=== PATIENT | female | born 1985 | race Caucasian/White ===

== ENCOUNTER 2023-07-25 17:02 | Observation (INO) | payer MEDICAID, SELFPAY ==
[2023-07-25 17:07] VITALS: BP 143/105; PULSE 115; RESP 16; TEMP 36.6; BMI 23.8
[2023-07-25 17:10] VITALS: BP 143/105; PULSE 115; RESP 16; TEMP 36.6
--- NOTE | 2023-07-25 17:36 | EX.ED.SAOD ---
HPI History of Present Illness Chief Complaint: Substance Abuse Informant: patient Narrative Narrative: Sent from [facility] referral for detox. History of opiate dependence, she states she was not using for years. She was at the methadone clinic. She states she was incarcerated for 9 months, has released little over a month ago. She states try to go back to the clinic as she was being treated in retirement with methadone. Physician was not present. She required going to the ER, she waited for 7 hours, they did not treat her with medications therefore she relapsed. She has been using multiple drugs including fentanyl methadone and cocaine. She states over a week ago she overdosed was hospitalized at [facility]. She follow-up with [facility] a week ago her reported drug test was clear. Since then she has been using, she tested today back at [facility] was positive. She admits to using fentanyl today. Denies alcohol. Last menstrual period was 2 months ago she is has dysmenorrhea states had bilateral tubal ligation in the past. She has had 7 previous children. Denies urinary symptoms. Denies, cramping nausea or vomiting. She states with detox she typically just eats more or draws. Prior similar symptoms: Yes PFSH PFSH Home Medications folic acid 1 mg tablet 1 mg PO DAILY 07/25/23 [History Last Taken Unknown] gabapentin 300 mg capsule 600 mg PO TID 07/25/23 [History Last Taken Unknown] hydroxyzine pamoate 50 mg capsule 50 mg PO Q6H PRN anxiety 07/25/23 [History Last Taken Unknown] methocarbamol 1,000 mg tablet 1,000 mg PO Q6H PRN muscle spasm 07/25/23 [History Last Taken Unknown] olanzapine 10 mg tablet (Zyprexa) 10 mg PO QHS 07/25/23 [History Last Taken Unknown] thiamine HCl (vitamin B1) 100 mg tablet 100 mg PO DAILY 07/25/23 [History Last Taken Unknown] Allergy/AdvReac Type Severity Reaction Status Date / Time ampicillin Allergy Angioedema Verified 07/25/23 17:06 Sulfa (Sulfonamide Allergy Angioedema Verified 07/25/23 17:06 Antibiotics) Social History Smoking Status: Current every day smoker tobacco type: e-cigarettes ROS ROS ED Constitutional Constitutional ED: Denies chills, fever(s) or sweats Eyes Eyes: Denies change in vision ENT ENT ED: Denies dysphagia or sore throat Cardiovascular Cardiovascular: Denies chest pain, leg edema, palpitations or racing heartbeat Respiratory/Chest Respiratory/Chest: Denies cough, dyspnea or dyspnea on exertion Gastrointestinal Gastrointestinal: Denies abdominal pain, diarrhea, nausea or vomiting Genitourinary Genitourinary ED: Denies dysuria, hematuria or urinary frequency Musculoskeletal Musculoskeletal: Denies back pain, extremity pain or neck pain Integumentary Denies rash or wounds Neurologic Neurologic: Denies headache(s), paresthesias or weakness EXAM Physical Exam Const Vital Signs: 07/25/23 17:07 07/25/23 17:10 Temperature 97.9 F 97.9 F Temperature Source Temporal Temporal Pulse Rate 115 H 115 H Respiratory Rate 16 16 Blood Pressure 143/105 H 143/105 H Blood Pressure Mean 117 117 Positive well nourished and well developed General Appearance ED: well developed and NAD HEENT Reports moist mucous membranes normocephalic and atraumatic Eyes PERRL, EOMs intact bilaterally and conjunctivae normal General Eye ED: Yes normal appearance of both eyes Neck no lymphadenopathy and supple General: Negative for tenderness Chest Wall Chest: Negative for tenderness Resp normal respiratory effort and normal air movement Effort and Inspection: symmetric chest movement; Negative for respiratory distress Cardio regular rhythm and no murmurs Rate: tachycardic Peripheral Pulses: pulses 2+ throughout GI normal to inspection, nondistended, normoactive bowel sounds and non-tender Palpation: Negative for guarding or rebound tenderness present Back/Spine no CVA tenderness and no thoracic nor lumbar tenderness Extremity normal to inspection General Extremety ED: Negative for edema or tenderness General Extremity: Negative for edema Neuro oriented x3 and no sensory deficits noted Sensorium / Orientation: awake and alert Skin no rashes or lesions noted and no wounds MDM MDM MDM Narrative Medical decision making narrative: Interventions / MDM: Differential diagnosis: Opioid dependence, polysubstance dependence Diagnosis considered but do not suspect: N/A My EKG interpretation: N/A Imaging independently reviewed and interpreted by myself: N/A External documents reviewed: N/A Test considered but not ordered:N/A ED course: Nontoxic slight tachycardia. Nonsurgical abdomen. Presenting for opiate dependence for detox program. Medical clearance labs ordered. Stable negative alcohol negative toxicology screen. Discussed with Dr. Agyepong for admission. Re-evaluation: stable Disposition discussed with patient/family/significant other: Patient Case discussed with consulting clinician: Hospitalist This note was generated with [employer] dictation software. It may contain incorrect words, spelling, and punctuation that were not noted in checking the note before signing. Lab Data Attestation: I reviewed the patient's lab results. Labs: Laboratory Results - last 24 hr 07/25/23 07/25/23 17:45 17:55 WBC 4.7 RBC 4.66 Hgb 13.4 Hct 43.5 MCV 93.3 MCH 28.8 MCHC 30.8 L RDW Std Deviation 49.7 H RDW Coeff of Bhavin 14.5 Plt Count 363 MPV 9.9 Immature Gran % (Auto) 0.200 Neut % (Auto) 43.7 L Lymph % (Auto) 45.1 H [place] % (Auto) 9.5 Eos % (Auto) 0.4 Baso % (Auto) 1.1 H Absolute Neuts (auto) 2.1 Absolute Lymphs (auto) 2.14 Nucleated RBC % 0 Differential Comment SCANNED Sodium 142 Potassium 4.3 Chloride 107 Carbon Dioxide 30.0 Anion Gap 5 BUN 15 Creatinine 0.63 Estim Creat Clear Calc 87.82 Est GFR (MDRD) Af Amer 136 Est GFR (MDRD) Non-Af 112 BUN/Creatinine Ratio 23.7 H Glucose 102 Calcium 8.9 Urine Test Negative Urine Opiates Screen NEGATIVE Urine Methadone Screen NEGATIVE Ur Barbiturates Screen NEGATIVE Ur Phencyclidine Scrn NEGATIVE Ur Amphetamines Screen NEGATIVE MDMA (Ecstasy) Screen NEGATIVE U Benzodiazepines Scrn NEGATIVE Urine Cocaine Screen NEGATIVE U Cannabinoids Screen NEGATIVE Ur Drug Screen Comment Ethyl Alcohol < 3.0 Discharge Plan Dx/Rx/DC Orders Clinical Impression: Desire for detoxification, Polysubstance dependence, Opioid dependence Disposition Disposition: Acute Care Hospital [facility] Discharge Date/Time: 07/25/23 20:45
[2023-07-25 18:05] LABS: Absolute Lymphocyte Count 2.14 X10^3/uL (0.83-4.51); Absolute Neutrophil Count 2.1 X10^3/uL (2.0-7.7); Basophil# 0.05 X10^3/uL; Basophil% 1.1 % (0-1); Eosinophil# 0.02 X10^3/uL; Eosinophils% 0.4 % (0-5); Hematocrit 43.5 % (37-47); Hemoglobin 13.4 g/dL (12.0-15.0); Lymphocyte # 2.14 X10^3/ul (0.83-4.51); Lymphocyte % 45.1 % (19-41); Mean Corp Hgb Conc 30.8 g/dL (32-36); Mean Corpuscular Hgb 28.8 pg (27.0-32.0); Mean Corpuscular Volume 93.3 fL (81-99); Mean Platelet Vol. 9.9 fl (6.2-12.0); Monocyte# 0.45 X10^3/uL; Monocyte% 9.5 % (0-10); NRBC Flagged by Analyzer 0 % (0-5); Neutrophil # 2.07 X10^3/uL (2.7-7.7); Neutrophil % 43.7 % (47-70); POSITIVE MORPHOLOGY YES; Platelet Count 363 K/mm3 (150-450); RBC Distribution Width CV 14.5 % (11.6-14.6); RBC Distribution Width SD 49.7 fl (35.1-43.9); Red Blood Count 4.66 M/mm3 (4.2-5.4); White Blood Count 4.7 K/mm3 (4.4-11.0)
[2023-07-25 18:14] LABS: Differential Indicated SCAN CRITERIA MET
[2023-07-25 18:30] LABS: Anion Gap 5 (5-15); BUN 15 mg/dL (7-18); BUN/Creat Ratio 23.7 RATIO (10-20); Calcium,Total 8.9 mg/dL (8.5-10.1); Chloride 107 mmol/L (98-107); Creatinine, Serum 0.63 mg/dL (0.55-1.02); EST Glomerular Filtration Rate 112 mL/min (>60); Est Glom Filt Rate - Afr Amer 136 mL/min (>60); Estimated Creatinine Clearance 87.82 ml/min; Glucose 102 mg/dL (74-106); Potassium 4.3 mmol/L (3.5-5.1); Sodium Level 142 mmol/L (136-145)
[2023-07-25 18:34] LABS: Alcohol, Blood (Medical)-Serum < 3.0 mg/dL; Differential Comment SCANNED
[2023-07-25 18:45] LABS: Amphetamine Urine VISTA NEGATIVE (<1000 ng/mL); Barbiturate Urine VISTA NEGATIVE (< 200 ng/mL); Benzodiazepine Urine VISTA NEGATIVE (< 200 ng/mL); Cocaine Urine VISTA NEGATIVE (< 300 ng/mL); Ecstacy Urine VISTA NEGATIVE (< 500 ng/mL); Methadone Urine VISTA NEGATIVE (< 300 ng/mL); PCP Urine VISTA NEGATIVE (< 25 ng/mL); THC Urine VISTA NEGATIVE (< 50 ng/mL); Vista UDS pH Range 6
[2023-07-25 18:46] LABS: Internal QC Validated? YES +Cl - CLEAR BKGD; Pregnancy, Urine Negative Negative
--- NOTE | 2023-07-25 19:33 | HP.PCM.HOS_ITS ---
HPI - General General Date of Admission: 07/25/23 Date of Service: 07/25/23 Chief Complaint: Desire for detoxification HPI Narrative MARGA CORTEZ, is a 37 with a significant history of opioid abuse F who presents to emergency department for detoxification. Reportedly patient has been snorting fentanyl. She has been snorting for about 15 years. Last time she used was about 1 to 2 days ago. Patient was at the methadone clinic but in about a month she has not been able to go because she does not get a bus to go. She was recently jailed for about 9 months. At the halfway she was getting methadone. She went to [facility]. However she tested positive for opioids so she was sent to the emergency department for an admission for detoxification. She reports withdrawal symptoms of spasm in both hands; shaking; and runny nose. Further, she has painful legs. [facility] Home Medications folic acid 1 mg tablet 1 mg PO DAILY 07/25/23 [History Last Taken Unknown] gabapentin 300 mg capsule 600 mg PO TID 07/25/23 [History Last Taken Unknown] hydroxyzine pamoate 50 mg capsule 50 mg PO Q6H PRN anxiety 07/25/23 [History Last Taken Unknown] methocarbamol 1,000 mg tablet 1,000 mg PO Q6H PRN muscle spasm 07/25/23 [History Last Taken Unknown] olanzapine 10 mg tablet (Zyprexa) 10 mg PO QHS 07/25/23 [History Last Taken Unknown] thiamine HCl (vitamin B1) 100 mg tablet 100 mg PO DAILY 07/25/23 [History Last Taken Unknown] Allergy/AdvReac Type Severity Reaction Status Date / Time ampicillin Allergy Angioedema Verified 07/25/23 17:06 Sulfa (Sulfonamide Allergy Angioedema Verified 07/25/23 17:06 Antibiotics) Family History no significant family his no significant family history Surgical History no surgical history no surgical history Social History Smoking Status: Current every day smoker tobacco type: e-cigarettes ROS ROS Narrative Pertinent positives and pertinent negatives as noted in HPI. All other systems were reviewed and are negative Vital Signs Vital Signs Vital Signs: 07/25/23 17:07 07/25/23 17:10 Temperature 97.9 F 97.9 F Temperature Source Temporal Temporal Pulse Rate 115 H 115 H Respiratory Rate 16 16 Blood Pressure 143/105 H 143/105 H Blood Pressure Mean 117 117 Weight Weight: 55.2 kg Body Mass Index (BMI) 23.8 Physical Exam Narrative Physical exam: General: Well-nourished, well-developed. Head: Normocephalic, atraumatic, no tenderness Eyes: Vision is grossly intact. EOMI ENT, no trauma, moist mucous membranes, no rhinorrhea Neck: Nontender, No thyromegaly. CVS: Regular rate and rhythm. S1-S2 present. No murmur, gallop or rub. Respiratory : clear to auscultation bilaterally, chest wall nontender Abdomen: Soft, nontender, nondistended, normal bowel sounds, no masses : Deferred Back: Nontender, no CVA tenderness, no midline spinal tenderness, deformities, step-offs Extremities: Nontender full range of motion, no trauma Skin: Normal color, no trauma, abrasions Neuro: Alert, oriented, cranial nerves II through XII grossly intact. Psychiatry: Normal mood. Normal affect. Not depressed. Not anxious. Results Lab / Micro Data 07/25/23 17:55 07/25/23 17:55 Labs: Laboratory Results - last 24 hr 07/25/23 17:45: Urine Test Negative, Urine Opiates Screen NEGATIVE, Urine Methadone Screen NEGATIVE, Ur Barbiturates Screen NEGATIVE, Ur Phencyclidine Scrn NEGATIVE, Ur Amphetamines Screen NEGATIVE, MDMA (Ecstasy) Screen NEGATIVE, U Benzodiazepines Scrn NEGATIVE, Urine Cocaine Screen NEGATIVE, U Cannabinoids Screen NEGATIVE, Ur Drug Screen Comment 07/25/23 17:55: WBC 4.7, RBC 4.66, Hgb 13.4, Hct 43.5, MCV 93.3, MCH 28.8, MCHC 30.8 L, RDW Std Deviation 49.7 H, RDW Coeff of Bhavin 14.5, Plt Count 363, MPV 9.9, Immature Gran % (Auto) 0.200, Neut % (Auto) 43.7 L, Lymph % (Auto) 45.1 H, [place] % (Auto) 9.5, Eos % (Auto) 0.4, Baso % (Auto) 1.1 H, Absolute Neuts (auto) 2.1, Absolute Lymphs (auto) 2.14, Nucleated RBC % 0, Differential Comment SCANNED, Sodium 142, Potassium 4.3, Chloride 107, Carbon Dioxide 30.0, Anion Gap 5, BUN 15, Creatinine 0.63, Estim Creat Clear Calc 87.82, Est GFR (MDRD) Af Amer 136, Est GFR (MDRD) Non-Af 112, BUN/Creatinine Ratio 23.7 H, Glucose 102, Calcium 8.9, Ethyl Alcohol < 3.0 Assessment & Plan Assessment/Plan (1) Desire for detoxification: PLAN: Plan Opioid dependence and withdrawal Patient be started on Subutex and other adjunctive medications: Gabapentin as needed; dicyclomine as needed; Vistaril as needed; methocarbamol as needed; clonidine as needed; Imodium as needed; trazodone as needed and Zofran as needed. Monitor COWS and CINA score Tobacco abuse Counseled Nicotine patch prescribed. DVT prophylaxis Low risk Encourage to ambulate Time spent in the patient's overall evaluation,decision-making process, review of diagnostic data, adjustment of management, discussion with other providers, nursing and ancillary staff involved in patient's care documentation, 45 minutes. Charges/Coding Visit Charges Inpatient E&M: 98655 Init Hosp L2
[2023-07-25 20:31] VITALS: BP 131/82; PULSE 104; RESP 16; TEMP 36.6; O2SAT 97
[2023-07-25 21:10] VITALS: BP 153/98; PULSE 110; RESP 16; TEMP 37; O2SAT 95
[2023-07-25] MEDS: traZODone 100 MG Tablet PO (22:08)
[2023-07-25] MEDS: hydrOXYzine PAM 25 MG Capsule 50 MG PO (22:08)
[2023-07-25] MEDS: cloNIDine HCl 0.1 MG Tablet PO (22:08)
[2023-07-25] MEDS: Gabapentin 600 MG Tablet PO (22:08)
[2023-07-25] MEDS: Buprenorphine HCl 2 MG TAB.SUBL SL (22:08)
[2023-07-25] MEDS: OLANZapine 10 MG Tablet PO (22:49)
[2023-07-25] MEDS: Methocarbamol 500 MG Tablet 1000 MG PO (22:49)
[2023-07-26 01:00] VITALS: BP 142/78; PULSE 101; RESP 16; TEMP 36.6; O2SAT 95
[2023-07-26 05:40] VITALS: BP 116/74; PULSE 105; RESP 16; TEMP 36.6; O2SAT 98
[2023-07-26] MEDS: Buprenorphine HCl 2 MG TAB.SUBL SL ×3 (05:44→21:19)
[2023-07-26] MEDS: Gabapentin 600 MG Tablet PO ×3 (05:44→21:18)
[2023-07-26] MEDS: hydrOXYzine PAM 25 MG Capsule 50 MG PO ×2 (05:44→18:59)
[2023-07-26 07:20] VITALS: O2SAT 93
--- NOTE | 2023-07-26 08:08 | PCM.PN.HOSP ---
Reason for Visit Reason for Visit: Opiate detox Subjective Subjective Is of pain.Ms. Lackey is a 37-year-old female who presents emergency department at [facility] on 07/25/2023 requesting detox from she uses intranasal fentanyl and has been using for about 15 years. Last use prior to presentation was 1 to 2 days ago. She had been going to the methadone clinic previously but has not been there in about a month that she has been able to able to get a bus to go. She was recently jailed about 9 months ago and in the prison methadone was initiated. She went to [facility] however she tested positive for opiates so she was sent to the emergency department for detoxification. Patient is denying opiate usage. She indicates she would like to be admitted to an inpatient facility. Upon presentation she is having withdrawal symptoms that included patent spasming, tremor, rhinitis and myalgias. Patient reports a rash on her leg and small bumps are identified but are not erythematous. She was worried about scabies however this is not a typical location for scabies and appears to be may be a mild contact irritation. In her left foot and swelling however no significant swelling identified on exam. Will obtain x-ray of foot. Also complains of a nodular red area over her left antecubital area where previous IV was placed at her previous hospitalization. Patient reports she was previously tested for COVID and was positive. Timing of this is unclear and will recheck here acutely. Objective Data Objective Data Vital Signs: Vital Signs Temp Pulse Resp BP Pulse Ox O2 Del Method 98 F 105 H 16 116/74 98 Room Air 07/26/23 05:40 07/26/23 05:40 07/26/23 05:40 07/26/23 05:40 07/26/23 05:40 07/26/23 05:40 Oxygen Delivery Method Room Air Weight: 54.431 kg Body Mass Index (BMI) 20.0 Lab / Micro Data 07/25/23 17:55 07/25/23 17:55 Labs: Laboratory Results - last 24 hr 07/25/23 17:45: Urine Test Negative, Urine Opiates Screen NEGATIVE, Urine Methadone Screen NEGATIVE, Ur Barbiturates Screen NEGATIVE, Ur Phencyclidine Scrn NEGATIVE, Ur Amphetamines Screen NEGATIVE, MDMA (Ecstasy) Screen NEGATIVE, U Benzodiazepines Scrn NEGATIVE, Urine Cocaine Screen NEGATIVE, U Cannabinoids Screen NEGATIVE, Ur Drug Screen Comment 07/25/23 17:55: WBC 4.7, RBC 4.66, Hgb 13.4, Hct 43.5, MCV 93.3, MCH 28.8, MCHC 30.8 L, RDW Std Deviation 49.7 H, RDW Coeff of Bhavin 14.5, Plt Count 363, MPV 9.9, Immature Gran % (Auto) 0.200, Neut % (Auto) 43.7 L, Lymph % (Auto) 45.1 H, [place] % (Auto) 9.5, Eos % (Auto) 0.4, Baso % (Auto) 1.1 H, Absolute Neuts (auto) 2.1, Absolute Lymphs (auto) 2.14, Nucleated RBC % 0, Differential Comment SCANNED, Sodium 142, Potassium 4.3, Chloride 107, Carbon Dioxide 30.0, Anion Gap 5, BUN 15, Creatinine 0.63, Estim Creat Clear Calc 87.82, Est GFR (MDRD) Af Amer 136, Est GFR (MDRD) Non-Af 112, BUN/Creatinine Ratio 23.7 H, Glucose 102, Calcium 8.9, Ethyl Alcohol < 3.0 Physical Exam Const alert, oriented x3, no apparent distress, average body habitus and well nourished Constitutional Narrative: Middle-aged, white female, sitting up in a chair at the bedside, watching television, appears comfortable nontoxic HEENT head/scalp atraumatic and moist oral mucous membranes HEENT Narrative: Mallampati 2, no thrush Head and Scalp: normocephalic Resp normal respiratory effort, no retractions, no use of accessory muscles and clear to auscultation bilaterally Auscultation: Negative for rales, rhonchi or wheezes Cardio regular rate, regular rhythm, S1 normal heart sound, S2 normal heart sound, no murmurs, no rub, no gallops and no clicks GI normal to inspection, nondistended, normoactive bowel sounds, soft to palpation and non-tender Extremity no clubbing, cyanosis or edema Extremity Narrative: Tenderness at ball of left foot, patient reports swelling however no significant swelling is identified on exam Skin Skin Narrative: Small area of erythema and mild nodularity over left antecubital consistent with a small cellulitis probably related to previous IV, no significant drainage or tenderness Neuro oriented x3, moves all extremities, no focal motor deficits and no sensory deficits noted Speech: speech normal Psych affect normal Mood & Affect: anxious Assessment & Plan Assessment/Plan (1) Opioid dependence: (2) Desire for detoxification: PLAN: Plan Opiate abuse/opiate withdrawal -Patient using intranasal fentanyl -Had been at a methadone clinic but was able to get a bus for about a month so started using -Methadone was started while incarcerated about 9 months ago -Patient states she has not been using fentanyl so she is not sure why her opiate screen was positive at [facility] -Toxicology was negative here however fentanyl will not show up on her screen -Start Subutex taper per [facility] protocol -As needed medication available for symptom management Left foot pain -Check x-ray Left antecubital cellulitis at previous IV spot -Patient with multiple allergies including angioedema with penicillin and sulfa -We will utilize doxycycline 100 mg p.o. twice daily x10 days Tobacco abuse -Recommend cessation -Nicotine patch available DVT prophylaxis -Low risk -Encourage frequent and early ambulation CODE STATUS Full code Charges/Coding Visit Charges Inpatient E&M: 28854 Subs Hosp L2
[2023-07-26] MEDS: Thiamine Hydrochloride 100 MG Tablet PO (08:23)
[2023-07-26] MEDS: cloNIDine HCl 0.1 MG Tablet PO (08:23)
[2023-07-26] MEDS: Methocarbamol 500 MG Tablet 1000 MG PO ×2 (08:23→18:58)
[2023-07-26] MEDS: Folic Acid 1 MG Tablet PO (08:23)
[2023-07-26 08:33] VITALS: BP 121/75; PULSE 94; RESP 16; TEMP 36.6; O2SAT 100
--- NOTE | 2023-07-26 11:16 | ADDICTION ---
Client is a 37 year old female who was admitted 07/25 via ER. Client is unemployed. Has 7 children, her father has 2 of her children and is supportive of clients recovery. Client reports she was previously in residential treatment at [facility]. Apparently she tested positive for Opioids at the facility. She report she was d/c'd. She denied use to the [facility] staff. She presented to the ER for detox-she reports she came to detox because she did not know what else to do, had no where to go. UDS at hospital was negative, but client admits to fentanyl use. When this information writer inquired about client not being honest with ER physician, she becomes tearful and again states she did not know what else to do. She is from [place] and is currently on probation in [facility]. Client indicates she will inform her surface to air weapons officer of the events in the last 24 hours. This information writer inquired about possibly probation violation, if client did not use substances, has she thought about legal consequences about reporting she used. Client states she has a 3 month fci sentence if she is violated, she is not worried about. Client is requesting residential services at [facility] in [place]. She reports she was treatment at [facility] approx. 2 years ago. She will need transportation. DESHAUN completed for [facility]. Unable to contact d/t weekend. This information writer confirmed with nurse client will remain in hospital until Saturday 07/28. Client did report she was positive for Covid on Friday07/20/23, nurse notified.
--- NOTE | 2023-07-26 11:38 | RAD_ITS ---
INDICATION: pain EXAMINATION/TECHNIQUE: X-RAY - RIGHT XR Foot Min 3 Views 3 VIEWS COMPARISON: FINDINGS: SOFT TISSUES: No soft tissue swelling or gas. No radiopaque foreign body. BONES/JOINTS: No acute fracture or subluxation.. Normal alignment. Preservation of the joint space.. No sclerotic or destructive changes observed. RAD/Foot min 3 Views IMPRESSION: Negative. Electronically Signed: Hussein Hratmann MD at 13:00 EDT ,
[2023-07-26 13:49] VITALS: BP 109/71; PULSE 99; RESP 16; TEMP 36.6; O2SAT 100
[2023-07-26] MEDS: Doxycycline 100 MG CAPSULE PO ×2 (13:50→21:18)
--- NOTE | 2023-07-26 14:19 | CASEMGMT ---
Social Work SW attempted to meet with patient to complete SDoH. Patient requesting SW come back later as she currently has her medication under her tongue and can not participate in conversation. Cinda EDWARDS, ERIC
--- NOTE | 2023-07-26 15:55 | CASEMGMT ---
Social Work SW met with patient and introduced self and role as [facility] SW. Patient agreeable to speak with SW. SW engaged patient in conversation regarding SDoH. Patient cooperative and reports no current home as the home she owned was condemned while she was in prison for nine months. Patient also needing resources for food, clothing and transportation. Patient reports her discharge plan is residential services at [facility] and requests the resources be for [facility]. Patient discussed feeling frustrated she is unable to participate in [facility] services but is understanding of their policies. SW provided emotional support. SW provided and reviewed list of resources for [facility] including clothing, transportation, MH services as well as housing. Patient receptive towards resource list and inquired about SW contacting [facility] to bring the pictures of her children that were left at their facility. SW contacted [facility] and inquired about patient's belongings. Detox Coordinator Екатерина informed and to discuss with [facility] staff. Cinda Flynn CONTAINERS SALES REPRESENTATIVE, ERIC
[2023-07-26 20:44] VITALS: BP 126/82; PULSE 107; RESP 16; TEMP 36.7; O2SAT 100
[2023-07-26] MEDS: OLANZapine 10 MG Tablet PO (21:18)
[2023-07-26] MEDS: Hydrocortisone 2.5% Ointment 20 gm tube 1 APPLIC TOPICAL (21:20)
[2023-07-27 02:45] VITALS: BP 111/78; PULSE 86; RESP 16; TEMP 36.7; O2SAT 95
[2023-07-27] MEDS: Buprenorphine HCl 2 MG TAB.SUBL SL ×3 (05:57→21:27)
[2023-07-27] MEDS: Gabapentin 600 MG Tablet PO ×3 (05:58→21:27)
[2023-07-27] MEDS: hydrOXYzine PAM 25 MG Capsule 50 MG PO ×3 (05:58→21:48)
[2023-07-27] MEDS: Methocarbamol 500 MG Tablet 1000 MG PO ×2 (06:06→15:08)
[2023-07-27 07:40] VITALS: O2SAT 97
[2023-07-27] MEDS: Thiamine Hydrochloride 100 MG Tablet PO (10:25)
[2023-07-27] MEDS: Folic Acid 1 MG Tablet PO (10:26)
[2023-07-27] MEDS: Doxycycline 100 MG CAPSULE PO ×2 (10:26→21:27)
[2023-07-27 10:30] VITALS: PULSE 106
[2023-07-27 10:32] VITALS: BP 117/72; PULSE 106; RESP 18; TEMP 36.9; O2SAT 99
--- NOTE | 2023-07-27 11:51 | PCM.PN.HOSP ---
Reason for Visit Reason for Visit: Opiate detox Subjective Subjective No significant issues overnight. She states she feels that her arm is better today. Objective Data Objective Data Vital Signs: Vital Signs Temp Pulse Resp BP Pulse Ox O2 Del Method 98.4 F 106 H 18 117/72 99 Room Air 07/27/23 10:32 07/27/23 10:32 07/27/23 10:32 07/27/23 10:32 07/27/23 10:32 07/27/23 10:32 Oxygen Delivery Method Room Air Weight: 54.431 kg Body Mass Index (BMI) 20.0 Intake & Output: Intake and Output for Last 24 Hours 07/25/23 07/26/23 07/27/23 23:59 23:59 23:59 Intake Total 1450 / 0 960 / 960 Balance 1450 / 0 960 / 960 Lab / Micro Data 07/25/23 17:55 07/25/23 17:55 Micro: Microbiology 07/26/23 11:00 Nasal Secretion SARS-CoV-2 Antigen (Rapid) - Final Radiography Diagnostic Testing: Radiology Impression Foot X-Ray 07/26/23 11:38 IMPRESSION: Negative. Electronically Signed: Hussein Hartmann MD at 13:00 EDT , Physical Exam Const alert, oriented x3, no apparent distress, average body habitus and well nourished Constitutional Narrative: Patient is walking around the room without any difficulty, appears comfortable nontoxic, no significant signs of acute withdrawal HEENT head/scalp atraumatic Head and Scalp: normocephalic Neuro oriented x3, moves all extremities and no focal motor deficits Neuro Narrative: Normal gait pattern Speech: speech normal Psych Psych Narrative: Eye contact is good and patient interacts appropriately Mood & Affect: anxious Assessment & Plan Assessment/Plan (1) Opioid dependence: (2) Desire for detoxification: PLAN: Plan Opiate abuse/opiate withdrawal -Patient using intranasal fentanyl -Had been at a methadone clinic but was able to get a bus for about a month so started using -Methadone was started while incarcerated about 9 months ago -Patient states she has not been using fentanyl so she is not sure why her opiate screen was positive at [facility] -Toxicology was negative here however fentanyl will not show up on her screen -Continue Subutex taper per [facility] protocol -As needed medication available for symptom management -[facility] has seen the patient and plan is for inpatient management with referrals being initiated tomorrow -Patient may be radically ready for discharge tomorrow depending on symptoms Left foot pain -Pain is better today -X-rays unremarkable Left antecubital cellulitis at previous IV spot -Patient with multiple allergies including angioedema with penicillin and sulfa -We will utilize doxycycline 100 mg p.o. twice daily x10 days--> day 2 of 10 -Erythema has improved Tobacco abuse -Recommend cessation -Nicotine patch available DVT prophylaxis -Low risk -Encourage frequent and early ambulation CODE STATUS Full code Charges/Coding Visit Charges Inpatient E&M: 36280 Subs Hosp L1
[2023-07-27] MEDS: Hydrocortisone 2.5% Ointment 20 gm tube 1 APPLIC TOPICAL (15:05)
[2023-07-27 15:10] VITALS: BP 126/72; PULSE 107; RESP 17; TEMP 36.9; O2SAT 99
[2023-07-27] MEDS: cloNIDine HCl 0.1 MG Tablet PO (15:16)
[2023-07-27 21:18] VITALS: BP 108/73; PULSE 100; RESP 18; TEMP 36.7; O2SAT 100
[2023-07-27] MEDS: Senna/Docusate Sodium 1 Tablet 2 TABLET PO (21:48)
[2023-07-28 06:25] VITALS: BP 102/65; PULSE 90; RESP 16; TEMP 36.8; O2SAT 96
[2023-07-28] MEDS: Gabapentin 600 MG Tablet PO (06:29)
[2023-07-28 08:13] VITALS: O2SAT 95
[2023-07-28 09:35] VITALS: BP 112/69; PULSE 100; RESP 18; TEMP 36.8; O2SAT 100
[2023-07-28] MEDS: Buprenorphine HCl 2 MG TAB.SUBL SL (09:36)
[2023-07-28] MEDS: Thiamine Hydrochloride 100 MG Tablet PO (09:36)
[2023-07-28] MEDS: Doxycycline 100 MG CAPSULE PO (09:36)
[2023-07-28] MEDS: Folic Acid 1 MG Tablet PO (09:36)
--- NOTE | 2023-07-28 12:22 | PCM.DC ---
Discharge Instructions Diet Discharge Diet: No restrictions Activity Discharge Activity: Return to Normal Activity Weight Bearing Status: Full weight bearing Follow Up Care When: Please establish with a primary care physician when able. Test Results: Test results from this visit will be discussed in further detail at your follow-up appointment, if applicable. Discharge Plan Admission Admit Date/Time: 07/25/23 19:25 Primary Reason for Your Visit: Opiate detoxification Attending Provider: Kye Stewart Primary Care Provider: Care Physician,No Primary Consulting Providers: Fercho Cerda; Yuliet Guido Instructions Additional Instructions / Restrictions: Please continue all home medications as you have been taking. We have not added any new medications for you to take. Please establish with a primary care doctor when able. Discharge Orders/Prescriptions Prescriptions: Continued gabapentin 300 mg capsule 600 mg PO TID olanzapine [Zyprexa] 10 mg tablet 10 mg PO QHS folic acid 1 mg tablet 1 mg PO DAILY thiamine HCl (vitamin B1) 100 mg tablet 100 mg PO DAILY hydroxyzine pamoate 50 mg capsule 50 mg PO Q6H PRN (Reason: anxiety) methocarbamol 1,000 mg tablet 1,000 mg PO Q6H PRN (Reason: muscle spasm) Referrals / Follow Up: Care Physician,No Primary [Primary Care Provider] - [facility] Doctor,Out of [Non-Staff] - Disposition Disposition (needs filled in before D/C Order can be placed): Home, Self Care
--- NOTE | 2023-07-28 12:25 | DS.PCM_ITS ---
Providers Date of Admission: 07/25/23 Primary Care Physician: No Primary Care Phys Reason For Visit: OPIOID DETOX Diagnosis Discharge Diagnosis (1) Opioid dependence: Status: Acute Code(s): F11.20 - Opioid dependence, uncomplicated (2) Desire for detoxification: Status: Acute Medications at Discharge Home Medications folic acid 1 mg tablet 1 mg PO DAILY 07/25/23 gabapentin 300 mg capsule 600 mg PO TID 07/25/23 hydroxyzine pamoate 50 mg capsule 50 mg PO Q6H PRN anxiety 07/25/23 methocarbamol 1,000 mg tablet 1,000 mg PO Q6H PRN muscle spasm 07/25/23 olanzapine 10 mg tablet (Zyprexa) 10 mg PO QHS 07/25/23 thiamine HCl (vitamin B1) 100 mg tablet 100 mg PO DAILY 07/25/23 doxycycline hyclate 100 mg capsule 100 mg PO BID #10 caps 07/28/23 Hospital Course Operations None Procedures None Summary of Care Provided Minutes Spent on Discharge: 25 Hospital Course: Patient is a 37-year-old female with history of opiate use disorder who presented to [facility] on 07/25/2023 for opiate detoxification. Short hospital course with multiple medical conditions addressed as noted below. Opiate use disorder: Patient reported using intranasal fentanyl. Had been at a methadone clinic but was unable to get a bus to go to the clinic for about a month so started using fentanyl again. Methadone was started about 9 months ago while she was incarcerated. Toxicology here was negative, however final not show up on the screen. Patient was placed on a Subutex taper per [facility] protocol plus as needed medications for symptom management while here, tolerated the withdrawal well. 180 saw patient here, and patient was discharged to an inpatient treatment facility in [place]. Left foot pain: Likely secondary to mild mechanical trauma. X-rays on admission unremarkable. Pain improved during admission. Left antecubital cellulitis at previous IV spot: Patient notably with multiple allergies including angioedema with penicillin and sulfa drugs. We will complete doxycycline 100 mg twice daily for 7 days, stop date 08/02. Tobacco use disorder: Nicotine patch made available while inpatient. Recommended cessation. Total clinical time spent by myself addressing the patient's discharge needs: 25 minutes. Physical Exam Const alert, oriented x3, no apparent distress and average body habitus General Appearance: cooperative and comfortable HEENT normocephalic, head/scalp atraumatic, hearing grossly normal bilaterally, nasal mucous membranes and turbinates normal and moist oral mucous membranes Eyes PERRL, EOMs intact bilaterally and conjunctivae normal Neck full ROM, no lymphadenopathy and supple Lymph Lymphatic: no lymphadenopathy noted Chest inspection of chest normal Resp normal respiratory effort, normal air movement, no use of accessory muscles and clear to auscultation bilaterally Cardio regular rate, regular rhythm, no murmurs and peripheral pulses 2+ throughout GI normal to inspection, nondistended, normoactive bowel sounds, soft to palpation, non-tender and non-distended Back/Spine normal ROM Extremity normal to inspection, full ROM and no pedal edema Skin no rashes or lesions noted Skin Narrative: Right antecubital cellulitis improving. Psych mental status grossly normal Weight / BMI Weight Weight: 54.431 kg Body Mass Index (BMI) 20.0 ABG / Lab / Microbiology Data 07/25/23 17:55 07/25/23 17:55 Microbiology: Microbiology 07/26/23 11:00 Nasal Secretion SARS-CoV-2 Antigen (Rapid) - Final D/C Instructions Discharge Diet: No restrictions Weight Bearing Status: Full weight bearing When: Please establish with a primary care physician when able. Meaningful Use Info Meaningful Use Diagnoses (Choose all that apply): None applicable Discharge Plan Admission Admit Date/Time: 07/25/23 19:25 Primary Reason for Your Visit: Opiate detoxification Attending Provider: Kye Stewart Primary Care Provider: Jenniffer Villa,No Primary Consulting Providers: Fercho Cerda; Yuliet Guido Instructions Additional Instructions / Restrictions: Please continue all home medications as you have been taking. We have not added any new medications for you to take. Please establish with a primary care doctor when able. Discharge Orders/Prescriptions Prescriptions: New doxycycline hyclate 100 mg capsule 100 mg PO BID Qty: 10 0RF Continued gabapentin 300 mg capsule 600 mg PO TID olanzapine [Zyprexa] 10 mg tablet 10 mg PO QHS folic acid 1 mg tablet 1 mg PO DAILY thiamine HCl (vitamin B1) 100 mg tablet 100 mg PO DAILY hydroxyzine pamoate 50 mg capsule 50 mg PO Q6H PRN (Reason: anxiety) methocarbamol 1,000 mg tablet 1,000 mg PO Q6H PRN (Reason: muscle spasm) Referrals / Follow Up: Care Physician,No Primary [Primary Care Provider] - [facility] Doctor,Out of [Non-Staff] - Disposition Disposition (needs filled in before D/C Order can be placed): Home, Self Care Charges/Coding Visit Charges Inpatient E&M: 41758 Disch Hosp
--- NOTE | 2023-07-28 15:59 | CHAPLAIN ---
Type of Pastoral Visit _x__ Initial Visit ___ Follow-up Visit ___ On-call Visit ___ General Patient Visit ___ Spiritual Assessment ___ Family Conference ___ Bereavement ___ Rapid Response ___ Code Blue ___ Other (describe below) Pastoral Care Referral From _x__ Patient ___ Family ___ Nurse ___ Physician ___ Orientor ___ Security Operations Center Operator ___ Other (describe below) Sacrament/Intervention _x__ Active listening ___ Anointing ___ Taoism ___ Bereavement ___ Communion _x__ Quiana exploration ___ _x__ Life review _x__ Prayer ___ Reconciliation ___ Sacrament of Sick _x__ Supportive presence ___ Wedding ___ Other (describe below) Pastoral Comments patient was eager to talk about her situation, life choices, desire for new start, and spiritual thoughts about God and how He operates; pt gave much in life review and talked about her relationships and seven children that she has birthed; patient's father is raising two of her children and she has limited contact with them; pt wants to go to rehab and then into transitional living, including a clean break from her past, relationships, and start over; pt is welcoming of conversation, review of her thoughts, and prayer
== END 2023-07-28 13:04 | disposition home or self-care (01) ==
LOC: ED 18:07 → MS3 07-26 06:46
PROVIDERS: Admitting Provider Hospitalist; Emergency Provider Emergency Medicine; Visit Provider Hospitalist
DX: F11.23 Opioid dependence with withdrawal (principal); Z79.899 Other long term (current) drug therapy; F17.290 Nicotine dependence, other tobacco product, uncomplicated; Z59.00 Homelessness unspecified; Z28.21 Immunization not carried out because of patient refusal; L03.114 Cellulitis of left upper limb
CPT/HCPCS: 73630; 80048; 80307; 81025; 82077; 85025; 87811; 99283; H0012